=== PATIENT | female | born 2000 | race Caucasian/White ===

== ENCOUNTER 2019-01-16 23:05 | Emergency (ER) | payer SELFPAY ==
[~2019-01-16] VITALS: Ht 154.9 cm; Wt 63.5 kg
--- OUTSIDE RECORDS SUMMARY | 2019-01-16 23:08 | XMS REPORT | Encounter Summary ---
Author Organization Unknown Address [address] [place] [address] Phone [phone] Reason for Visit Medical Complaint Instructions 1. Acute pyelonephritis urinalysis, dipstick ciprofloxacin 500 mg tablet culture, urine patient follow up phone call 2. Proteinuria 3. Blood in urine blood in the urine in children: care instructions Discussion Note Pt is in NAD; Verbalizes understanding of all instructions with no questions at this time. Plan of Care Patient Instructions Take tylenol over the counter for pain/headache/fever as per pacakge insert. Take benzonatate for cough as directed. Recommend proper hydration and frequent urination. Avoid douching, Recommend urinating after sexual intercourse. Recommend wipe front to back after urinating. Avoid using tubs. Take medications as prescribed. Follow up with your PCP within 2-3 days if symptoms worsen as discussed and within a week for re-assessment of protein and blood in urine. In case of an emergency call 911 or go to nearest ER. Reminders Provider Appointments None recorded. Lab Urinalysis, Dipstick 04/09/2018 [facility] Culture, Urine 04/09/2018 [facility] Referral None recorded. Procedures None recorded. Surgeries None recorded. Imaging None recorded. Medications Name Start Date ciprofloxacin 500 mg tablet Take 1 tablet every 12 hours by oral route as directed for 10 days. Medications Administered None recorded. Vitals Height Weight BMI Blood Pressure 5 ft 5 in 130 lbs 21.6 kg/m2 106/64 mm[Hg] Lab Results Date Name Specimen Result Interpretation Description Value Range Status Address 04/09/2018 Urinalysis, Dipstick Color : Oriana [facility]: [address] [place] [address] Clarity : Turbid [facility]: [address] [place] [address] Leukocytes : Large [facility]: [address] [place] [address] Nitrites : Positive [facility]: [address] [place] [address] Urobilinogen : Normal [facility]: [address] [place] [address] Protein : 30 [facility]: [address] [place] [address] Ph : 7.0 [facility]: 9 [facility] Blood : Moderate [facility]: 9 [facility] Specific [place] : 1.015 [facility]: 9 [facility] Ketones : Negative [facility]: 9 [facility] Bilirubin : Negative [facility]: 9 [facility] Glucose Negative [facility]: 9 [facility] Allergies Code Code System Name Reaction Severity Status Onset NKDA Problems Name Status Onset Date Source Acute Pyelonephritis Active 04/09/2018 Blood in Urine Active 04/09/2018 Proteinuria Active 04/09/2018 Procedures Date Name Performed by Tonsillectomy Information not available Vaccine List None recorded. Social History Smoking Status Never Smoker Past Encounters 04/09/2018 Acute Pyelonephritis; Proteinuria; Blood in Urine Kathy Lawrence, ELECTRIC RELAY TESTER-C: [address] [place] [address], Ph. History of Present Illness [id number] Reported By: Patient HPI: Location: radiation to back. Quality: pain, pressure, burning. Severity: worsening, moderate. Duration: constant. Onset/Timing: worse, gradual. Context: no known exposure to STD, no prior history of STDs, sexually active, unprotected intercourse, [id number], homosexual, vaginal intercourse, wipes anterior to posterior, voids after intercourse. Modifying factors nothing makes it worse. Associated Symptoms: no jaundice, no blood in the urine, no vaginal discharge, no blisters on genitals, no rash on genitals, no muscle aches, no headache, fever/chills, flank pain, pain during urination, burning sensation during urination, urgency, urinary frequency; nausea Review of Systems:ROS as noted in the HPI Review of Systems Basic Reported By: Patient Physical Exam Adult Basic, Adult Female Complete, 14-21 Yr Females Reported By: Patient Constitutional: General Appearance: healthy-appearing, well-nourished, well-developed. Level of Distress: NAD. Ambulation: ambulating normally Psychiatric: Mental Status: active and alert, normal affect, normal mood. Orientation: to time, to place, to person Eyes: Lids and Conjunctivae: non-injected, no pallor; no periorbital edema Neck: Neck: supple. Lymph Nodes: no cervical LAD Lungs: Respiratory effort: no dyspnea, no tachypnea, no use of accessory muscles, no intercostal retractions. Auscultation: breath sounds normal Cardiovascular: Heart Auscultation: RRR, no murmurs Musculoskeletal:: Extremities: no edema Neurologic: Gait and Station: normal gait Abdomen: Bowel Sounds: normal. Inspection and Palpation: soft, non-distended, no tenderness, no guarding, no rebound tenderness, no masses, no CVA tenderness. Liver: non-tender, no hepatomegaly. Spleen: non-tender, no splenomegaly. Hernia: none palpable. Palpation: (normal) bowel sounds
--- OUTSIDE RECORDS SUMMARY | 2019-01-16 23:08 | XMS REPORT | Continuity of Care Document ---
Author Author [employer] Address Unknown Phone Unavailable Care Team Providers [employer] Name Role Phone [employer] Unavailable Unavailable Problems Problem Status Onset Date Classification Date Reported Comments Source Acute pyelonephritis 04/09/2018 Problem 04/10/2018 [facility] Blood in urine 04/09/2018 Problem 04/10/2018 [facility] Proteinuria 04/09/2018 Problem 04/10/2018 [facility] Medications Medication Details Route Status Patient Instructions Ordering Provider Order Date Source Ciprofloxacin 500 MG Oral Tablet ciprofloxacin 500 mg tablet Take 1 tablet every 12 hours by oral route as directed for 10 days. Active [facility] Allergies, Adverse Reactions, Alerts No Known Medication Allergies Immunizations No Data Provided for This Section Results Order Name Results Value Reference Range Date Interpretation Comments Source Urinalysis macro (dipstick) panel - Urine COLOR : Oriana 04/09/2018 [facility] Urinalysis macro (dipstick) panel - Urine CLARITY : Turbid 04/09/2018 [facility] Urinalysis macro (dipstick) panel - Urine LEUKOCYTES : Large 04/09/2018 [facility] Urinalysis macro (dipstick) panel - Urine NITRITES : Positive 04/09/2018 [facility] Urinalysis macro (dipstick) panel - Urine UROBILINOGEN : Normal 04/09/2018 [facility] Urinalysis macro (dipstick) panel - Urine PROTEIN : 30 04/09/2018 [facility] Urinalysis macro (dipstick) panel - Urine pH : 7.0 04/09/2018 [facility] Urinalysis macro (dipstick) panel - Urine BLOOD : Moderate 04/09/2018 [facility] Urinalysis macro (dipstick) panel - Urine SPECIFIC GRAVITY : 1.015 04/09/2018 [facility] Urinalysis macro (dipstick) panel - Urine KETONES : Negative 04/09/2018 [facility] Urinalysis macro (dipstick) panel - Urine BILIRUBIN : Negative 04/09/2018 [facility] Urinalysis macro (dipstick) panel - Urine GLUCOSE Negative 04/09/2018 [facility] Pathology Reports No Data Provided for This Section Diagnostic Reports No Data Provided for This Section Consultation Notes No Data Provided for This Section Discharge Summaries No Data Provided for This Section History and Physicals No Data Provided for This Section Vital Signs Vital Sign Value Date Comments Source Diastolic (mm Hg) 64 04/09/2018 [facility] Height 65 04/09/2018 [facility] Systolic (mm Hg) 106 04/09/2018 [facility] Weight 130 04/09/2018 [facility] Encounters Location Location Details Encounter Type Encounter Number Reason For Visit Attending Provider ADM Date DC Date Status Source [place] - [facility] - [id number] CARLOS OswaldP-C: [address] [place] [address], Ph. [id number] Kathy Lawrence 04/09/2018 [facility] [place] - [facility] - [id number] Kathy Lawrence, SOCKET PULLER-C: [address] [place] [address], Ph. [id number] Kathy Lawrence 04/09/2018 [facility] Procedures Procedure Code Date Perfomer Comments Source Tonsillectomy [facility] Assessment and Plan No Data Provided for This Section Plan of Care No Data Provided for This Section Social History Social History Date Source Smoking Status Never Smoker 04/09/2018 [facility] Family History No Data Provided for This Section Advance Directives No Data Provided for This Section Functional Status No Data Provided for This Section
--- OUTSIDE RECORDS SUMMARY | 2019-01-16 23:08 | XMS REPORT ---
Author Author [facility] Address Unknown Phone Unavailable Care Team Providers Care Group Exercise Instructor Name Role Phone Unavailable Unavailable Payers Payer Name Policy Type Policy Number Effective Date Expiration Date Problems This patient has no known problems. Allergies, Adverse Reactions, Alerts Allergy Name Allergy Type Status Severity Reaction(s) Onset Date Inactive Date Treating Clinician Comments No Known Allergies DA Active U 2018-06-14 00:00:00 No Known Allergies DA Active U 2018-05-28 00:00:00 No Known Allergies DA Active U 2016-08-20 00:00:00 Medications This patient has no known medications.
--- OUTSIDE RECORDS SUMMARY | 2019-01-16 23:08 | XMS REPORT | Encounter Summary ---
Author Organization Unknown Address [address] [place] [address] Phone [phone] Reason for Visit Medical Complaint Instructions 1. [...] Urinalysis, Dipstick Color : Oriana [facility]: [address] [place] [address] Clarity : Turbid [facility]: [address] [place] [address] Leukocytes : Large [facility]: [address] [place] [address] Nitrites : Positive [facility]: [address] [place] [address] Urobilinogen : Normal [facility]: [address] [place] [address] Protein : 30 [facility]: [address] [place] [address] Ph : 7.0 [facility]: 9 [facility] Blood : Moderate [facility]: 9 [facility] Specific [place] : 1.015 [facility]: 9 [facility] Ketones : Negative [facility]: 9 [facility] Bilirubin : Negative [facility]: 9 [facility] Glucose Negative [facility]: 9 [facility] Allergies Code Code System Name Reaction Severity Status Onset NKDA Problems Name Status Onset Date Source Acute Pyelonephritis Active 04/09/2018 Blood in Urine Active 04/09/2018 Proteinuria Active 04/09/2018 Procedures Date Name Performed by Tonsillectomy Information not available Vaccine List None recorded. Social History Smoking Status Never Smoker Past Encounters 04/09/2018 Acute Pyelonephritis; Proteinuria; Blood in Urine Kathy Lawrence, ELECTRICAL HELPER-C: [address] [place] [address], Ph. History of Present Illness [id number] Reported By: Patient HPI: Location: radiation to back. Quality: pain, pressure, burning. Severity: worsening, moderate. Duration: constant. Onset/Timing: worse, gradual. Context: no known exposure to STD, no prior history of STDs, sexually active, unprotected intercourse, [id number], homosexual, vaginal intercourse, wipes anterior to posterior, [...]
--- NOTE | 2019-01-17 00:18 | Diagnostic Imaging Report ---
EXAMINATION: CHEST SINGLE (PORTABLE) INDICATION: Chest pain COMPARISON: None FINDINGS: AP view TUBES and LINES: None. LUNGS: Lungs are well inflated. Lungs are clear. There is no evidence of pneumonia or pulmonary edema. PLEURA: No pleural effusion or pneumothorax. HEART AND MEDIASTINUM: The cardiomediastinal silhouette is unremarkable. BONES AND SOFT TISSUES: No acute osseous lesion. Soft tissues are unremarkable. UPPER ABDOMEN: No free air under the diaphragm. IMPRESSION: No acute thoracic radiographic abnormality. Signed by: Nadeem Carter DO on 01/17/2019 12:15 AM
[2019-01-17 00:20] LABS: BASOPHILS # (AUTO) 0.1 (0.0-0.1); BASOPHILS % 0.5 % (0.0-1.0); EOSINOPHILS # (AUTO) 0.1 (0.0-0.4); EOSINOPHILS % 1.3 % (0.0-6.0); HEMATOCRIT 42.1 % (34.2-44.1); HEMOGLOBIN 14.1 g/dL (12.0-16.0); LYMPHOCYTES # (AUTO) 3.5 (1.0-3.2); LYMPHOCYTES % 36.7 % (18.0-39.1); MEAN CORPUSCULAR HEMOGLOBIN 29.9 pg (28-32); MEAN CORPUSCULAR HGB CONC 33.5 g/dL (31-35); MEAN CORPUSCULAR VOLUME 89.4 fL (81-99); MONOCYTES # (AUTO) 0.7 (0.2-0.8); MONOCYTES % 7.7 % (4.4-11.3); NEUTROPHILS # (AUTO) 5.1 (2.1-6.9); NEUTROPHILS % 53.5 % (38.7-80.0); PLATELET COUNT 290 x10e3/uL (140-360); RED BLOOD COUNT 4.71 x10e6/uL (3.6-5.1); RED CELL DISTRIBUTION WIDTH 12.7 % (11.7-14.4)
[2019-01-17 00:22] LABS: BILIRUBIN,URINE NEGATIVE (NEGATIVE); CLARITY,URINE CLEAR (CLEAR); COLOR,URINE YELLOW (YELLOW); KETONES,URINE NEGATIVE (NEGATIVE); LEUKOCYTE ESTERASE ,URINE NEGATIVE (NEGATIVE); NITRITE,URINE NEGATIVE (NEGATIVE); PROTEIN,URINE DIPSTICK NEGATIVE (NEGATIVE); URINE UROBILINOGEN 0.2 mg/dL (0.2 - 1)
[2019-01-17 00:31] LABS: AMPHETAMINES SCREEN,URINE NEGATIVE (NEGATIVE); BENZODIAZEPINES SCREEN,URINE NEGATIVE (NEGATIVE); PHENCYCLIDINE SCREEN,URINE NEGATIVE (NEGATIVE)
[2019-01-17 00:32] LABS: PREGNANCY TEST, URINE NEGATIVE (NEGATIVE)
[2019-01-17 00:43] LABS: CREATINE KINASE MB < 1.00 ng/mL (0-4.3)
[2019-01-17 01:42] LABS: BACTERIA,URINE MANY /HPF; EPITHELIAL CELLS,URINE MODERATE /LPF
[2019-01-17 03:11] VITALS: BP 126/58
[2019-01-17 05:25] LABS: CREATINE KINASE 54 IU/L (29-168)
== END 2019-01-17 03:24 | disposition home or self-care (01) ==
LOC: ER 23:05
DX: R07.89 Other chest pain (principal); R09.1 Pleurisy; N30.90 Cystitis, unspecified without hematuria; F41.9 Anxiety disorder, unspecified; F12.90 Cannabis use, unspecified, uncomplicated; F17.290 Nicotine dependence, other tobacco product, uncomplicated
CPT/HCPCS: 36415; 71045; 80307; 81001; 81025; 82550; 82553; 83880; 84484; 85025; 85379; 93005; 99284